=== PATIENT | male | born 1975 | race Caucasian/White ===

== ENCOUNTER → 2018-11-01 | Outpatient (CLI) | payer BC ==
[~2018-11-01] MED LIST: FLONASE NASAL S16 GM NS; MULTI VITAMINS1 TAB PO; NEXIUM 40MG40 MG PO; NORCO 325 MG-101 TAB PO; OMEGA-3 1000 MG1 CAP PO; PROPECIA1 MG PO; PROZAC 20MG20 MG PO
== END ==
LOC: COL.RAD 14:32
DX: K80.20 Calculus of gallbladder without cholecystitis without obstruction (principal); K82.8 Other specified diseases of gallbladder; R31.9 Hematuria, unspecified; R16.0 Hepatomegaly, not elsewhere classified; M43.06 Spondylolysis, lumbar region

== ENCOUNTER 2018-11-06 15:35 | Inpatient (IN) | payer BC ==
[~2018-11-06] VITALS: Ht 182.9 cm; Wt 102.2 kg
[2018-11-06] MEDS ORDERED: FLONASE NASAL S16 GM NS (15:56)
[2018-11-06] MEDS ORDERED: NORCO 325 MG-101 TAB PO (15:57)
[2018-11-06] MEDS ORDERED: NEXIUM 40MG40 MG PO (15:57)
[2018-11-06] MEDS ORDERED: PROZAC 20MG20 MG PO (15:57)
[2018-11-06] MEDS ORDERED: MULTI VITAMINS1 TAB PO (15:58)
[2018-11-06] MEDS ORDERED: PROPECIA1 MG PO (15:58)
[2018-11-06] MEDS ORDERED: OMEGA-3 1000 MG1 CAP PO (15:59)
[2018-11-06 16:17] VITALS: BP 123/76; PULSE 109; TEMP 98.1
[2018-11-06 18:01] LABS: HEMATOCRIT 44.8 % (42.0-52.0); HEMOGLOBIN 15.3 g/dl (13.5-18.0); MEAN CELL VOLUME 84 fl (80.0-100.0); MEAN CORPUSCULAR HEMOGLOBIN 29 pg (27.0-31.0); MEAN CORPUSCULAR HGB CONC 34 g/dl (33.0-37.0); MEAN PLATELET VOLUME 10.3 fl (7.4-10.4); PLATELET COUNT 343 K/mm3 (130-400); RED BLOOD COUNT 5.34 M/mm3 (4.20-5.60); REDCELL DISTRIBUTION WIDTH-CV 16.2 % (11.5-14.5)
[2018-11-06 18:09] LABS: ALBUMIN 3.2 gm/dL (3.5-5.0); BILIRUBIN,TOTAL 2.8 mg/dL (0.0-1.0); CALCIUM 8.1 mg/dL (8.4-10.2); CREATININE, serum 1.86 (0.66-1.25); POTASSIUM 4.8 mmol/L (3.4-5.0)
[2018-11-06 18:52] LABS: BAND 2 % (0-10); EOSINOPHIL 1 % (0-4); LYMPHOCYTE 13 % (20.0-51.0); NEUTROPHILS 81 % (42.0-75.2); PLATELET ESTIMATE NORMAL (NORMAL)
[2018-11-06 19:15] VITALS: BP 122/67; PULSE 116; TEMP 99.2
[2018-11-06 19:24] VITALS: BP 122/67; PULSE 116; TEMP 99.2
[2018-11-06 20:51] LABS: PH 6 (5-8); SQUAMOUS EPITHELIAL None Seen /hpf; URINE APPEARANCE Clear; URINE BACTERIA None Seen /hpf; URINE BILIRUBIN Negative (NEGATIVE); URINE BLOOD 3+ (NEGATIVE); URINE COLOR Amber; URINE GLUCOSE Negative (NEGATIVE); URINE KETONE Negative (NEGATIVE); URINE LEUKOCYTE ESTERASE Negative (NEGATIVE); URINE NITRATE Negative (NEGATIVE); URINE PROTEIN(semi-quant) 1+ (NEGATIVE); URINE RBC >50 /hpf; URINE UROBILINOGEN >=4.0 mg/dL (NEGATIVE)
[2018-11-06 20:55] LABS: COLLECTION METHOD CLEAN CATCH
--- NOTE | 2018-11-06 21:28 | NUR ---
PATIENT UP TO CHAIR. REPORTS NEED FOR PAIN MEDICATION. PAIN AT A 7/10 IN HIS R ABD AND UPPER CHEST/SHOULDER AREA. DESCRIBED SHARP PAIN. GIVEN PO NORCO. PATIENT ALERT AND ORIENTED. UP TO BATHROOM, HAD UNMEASURED VOID AND DID UA SAMPLE. SEE ASSESSMENT. NO FURTHER NEEDS AT THIS TIME.
[2018-11-07] VITALS (7 sets, daily range): BP systolic 120–139; BP diastolic 72–87; PULSE 102–114; TEMP 98.1–100.9
--- NOTE | 2018-11-07 02:37 | NUR ---
PATIENT C/O HOT SWEATS. FEVER OF 100.9 NOTED. CALLED TO [facility]. ORDERED 650 MG TYLENOL PO. REQUESTED ANOTHER SPRITE AND ICE CHIPS. WILL CONTIUE TO MONITOR.
[2018-11-07 06:45] LABS: HEMATOCRIT 41.4 % (42.0-52.0); HEMOGLOBIN 14.2 g/dl (13.5-18.0); MEAN CELL VOLUME 83 fl (80.0-100.0); MEAN CORPUSCULAR HEMOGLOBIN 29 pg (27.0-31.0); MEAN CORPUSCULAR HGB CONC 34 g/dl (33.0-37.0); PLATELET COUNT 354 K/mm3 (130-400); RED BLOOD COUNT 4.98 M/mm3 (4.20-5.60); REDCELL DISTRIBUTION WIDTH-CV 16.1 % (11.5-14.5)
[2018-11-07 06:59] LABS: ALBUMIN 3.1 gm/dL (3.5-5.0); BILIRUBIN,TOTAL 2.5 mg/dL (0.0-1.0); CREATININE, serum 1.59 (0.66-1.25); POTASSIUM 4.4 mmol/L (3.4-5.0); TOTAL PROTEIN 6.8 gm/dL (6.4-8.2)
[2018-11-07 07:19] LABS: ANISOCYTOSIS 1+; BAND 3 % (0-10); EOSINOPHIL 1 % (0-4); LYMPHOCYTE 17 % (20.0-51.0); NEUTROPHILS 78 % (42.0-75.2); PLATELET ESTIMATE NORMAL (NORMAL)
--- NOTE | 2018-11-07 08:50 | NUR ---
Patient in bed resting. Alert and oriented x 3. Shift assessment complete. Patient states pain to abdomen /10, given norco per orders. Iv fluids infusing per orders. Denies further needs at this time.
--- NOTE | 2018-11-07 09:50 | NUR ---
Dr. Sanders, Dr. Jennings and hospitalit team in to see patient.
--- NOTE | 2018-11-07 10:18 | NUR ---
SW attended clinical rounds to discuss discharge planning. Patient's mother was also present. Patient lives independently at home with his . Patient's PCP is Dr Stratton and he obtains prescriptions from [email or web address]. Patient denies difficulty obtaining or paying for medications. Patient is independent with all ADLs and does not require any DME or home health services. Patient does not have a DPOA-HC and is not interested in completeing one at this time. SW does not anticipate any discharge needs.
[2018-11-07 10:48] LABS: FERRITIN 271 ng/mL (18-464); IRON,SERUM 16 ug/dL (35-150); TOTAL IRON BINDING CAPACITY 258 ug/dL (261-462)
[2018-11-07 11:35] LABS: BILIRUBIN,DIRECT 1.2 mg/dL (0.0-0.4)
[2018-11-07 12:15] LABS: INR 1.2 (0.8-3.0); PROTHROMBIN TIME 14.5 SECONDS (9.7-12.8)
--- NOTE | 2018-11-07 13:17 | NUR ---
Contacted MRI for MRCP, unable to do today, as patient has been drinking fluids, plan for NPO at midnight MRCP to be done in AM
[2018-11-07 17:12] LABS: PH 7 (5-8); SQUAMOUS EPITHELIAL None Seen /hpf; URINE APPEARANCE Clear; URINE BACTERIA None Seen /hpf; URINE BILIRUBIN Negative (NEGATIVE); URINE BLOOD 3+ (NEGATIVE); URINE COLOR Yellow; URINE GLUCOSE Negative (NEGATIVE); URINE KETONE Negative (NEGATIVE); URINE LEUKOCYTE ESTERASE Negative (NEGATIVE); URINE NITRATE Negative (NEGATIVE); URINE PROTEIN(semi-quant) Negative (NEGATIVE); URINE RBC >50 /hpf; URINE UROBILINOGEN >=4.0 mg/dL (NEGATIVE)
[2018-11-07 17:20] LABS: COLLECTION METHOD CLEAN CATCH
[2018-11-07 17:33] LABS: HEMATOCRIT 41.4 % (42.0-52.0); HEMOGLOBIN 14.2 g/dl (13.5-18.0); MEAN CELL VOLUME 83 fl (80.0-100.0); MEAN CORPUSCULAR HEMOGLOBIN 28 pg (27.0-31.0); MEAN CORPUSCULAR HGB CONC 34 g/dl (33.0-37.0); MEAN PLATELET VOLUME 10.1 fl (7.4-10.4); PLATELET COUNT 357 K/mm3 (130-400); RED BLOOD COUNT 5.02 M/mm3 (4.20-5.60); REDCELL DISTRIBUTION WIDTH-CV 16.1 % (11.5-14.5)
[2018-11-07 18:05] LABS: ALBUMIN 3.1 gm/dL (3.5-5.0); BILIRUBIN,TOTAL 2.1 mg/dL (0.0-1.0); CALCIUM 8.1 mg/dL (8.4-10.2); CREATININE, serum 1.28 (0.66-1.25); POTASSIUM 4.5 mmol/L (3.4-5.0); TOTAL PROTEIN 6.8 gm/dL (6.4-8.2)
--- NOTE | 2018-11-07 18:27 | NUR ---
Patient has done well throughout the day, having kussmaul respirations this AM, better towards midday. Has requested pain medications throughout the day, given per orders. Showered this afternoon, linens changed. fluids and antibiotcs infusing to left forarm IV per orders. Patient is to be NPO at midnight for MRCP in the AM. Denies further needs at this time. will report off to cage shift manager.
[2018-11-07 18:33] LABS: BAND 1 % (0-10); EOSINOPHIL 2 % (0-4); LYMPHOCYTE 10 % (20.0-51.0); NEUTROPHILS 78 % (42.0-75.2)
[2018-11-07 18:34] LABS: PLATELET ESTIMATE NORMAL (NORMAL)
--- NOTE | 2018-11-07 23:37 | NUR ---
patient alert and oriented in bed. c/o increased pain. po norco given. appears flushed and states he is sweaty. afebrile. respirations are deep but normal rate. patient denies further needs at this time.
[2018-11-07 23:59] LABS: HEPATITIS B CORE AB,TOTAL Negative (()); HEPATITIS B SURFACE ANTIBODY <2.0 (())
[2018-11-08] VITALS (11 sets, daily range): BP systolic 132–152; BP diastolic 80–93; PULSE 91–109; TEMP 97.7–99.4
[2018-11-08 00:01] LABS: FOLLICLE STIMULATING HORMONE <0.1 mIU/mL (1.0-12.0); LUTENIZING HORMONE <0.1 mIU/mL (0.6-12.1)
--- NOTE | 2018-11-08 03:52 | NUR ---
PATIENT BLOOD CULTURE MRSA POSITIVE. CALLED TO [facility]. STARTED ON 2G VANCOMYCIN. WILL RUN WHEN ZOSYN IS COMPLETE. CONTACT ISOLATION INITIATED.
--- NOTE | 2018-11-08 06:11 | NUR ---
Vancomycin Initial Dosing Pharmacy Note Ordering provider: Doyle Cordoba DO Indication/duration: MRSA Bacteremia, 7 days Relevant comorbidities: possible acute cholecystitis w/ sepsis LABS: WBC 17.7, SCr 1.28, CrCl>80, GFR 62 MICRO: Bio[facility] blood culture +MRSA Recommendation: Vancomycin 1.5 gm (~15 mg/kg) IV q8h. Pharmacy will continue to monitor and check a Vancomycin trough on 11/09/18. Loading dose: 2 grams Maintenance dose: 1.5 grams every 8 hours Trough goal: 15-20 ug/mL
[2018-11-08 07:31] LABS: BASO # 0.1 (0.0-0.2); BASO % 0.7 % (0.0-2.0); EOS # 0.3 (0.0-0.7); EOS % 1.5 % (0-4.0); GRAN # 15.8 (1.4-6.5); GRAN % 77.3 % (42.2-75.2); HEMATOCRIT 42.6 % (42.0-52.0); HEMOGLOBIN 14.4 g/dl (13.5-18.0); LYMPH # 1.9 (1.2-3.4); LYMPH % 9.2 % (20.0-51.0); MEAN CELL VOLUME 84 fl (80.0-100.0); MEAN CORPUSCULAR HEMOGLOBIN 28 pg (27.0-31.0); MEAN CORPUSCULAR HGB CONC 34 g/dl (33.0-37.0); MEAN PLATELET VOLUME 10.4 fl (7.4-10.4); MONO # 1.3 (0.1-0.6); MONO % 6.5 % (1.7-9.3); PLATELET COUNT 397 K/mm3 (130-400); RED BLOOD COUNT 5.08 M/mm3 (4.20-5.60); REDCELL DISTRIBUTION WIDTH-CV 16.4 % (11.5-14.5)
[2018-11-08 07:39] LABS: ALBUMIN 3.2 gm/dL (3.5-5.0); BILIRUBIN,TOTAL 2.1 mg/dL (0.0-1.0); CALCIUM 8.3 mg/dL (8.4-10.2); CREATININE, serum 1.32 (0.66-1.25); POTASSIUM 4.4 mmol/L (3.4-5.0)
--- NOTE | 2018-11-08 08:00 | NUR ---
PATIENT IS DROWSY AND RESTING IN BED THIS MORNING. PATIENT IS A&OX4. TACHYPNIC, SHALLOW BREATHING NOTED. PATIENT DENIES A PRODUCTIVE COUGH, BUT STATES THAT HE FEELS SHORT OF BREATH WITH PAIN. TACHYCARDIA NOTED, VSS. PATIENT STATES THAT HE FEELS WEAK TODAY. BOWEL SOUNDS ACTIVE ALL FOUR QUADRANTS. PATIENT IS NPO FOR IMAGING. PATIENT DENIES COMPLAINTS OF N/V. POSITIVE PEDAL PULSES EQUAL BILATERALLY. IV FLUIDS INFUSING TO LEFT FOREARM IV VIA PUMP. PATIENT GIVEN PRN PO NORCO FOR PAIN RATED A 7/10 ON A 0-10 SCALE. CALL LIGHT WITHIN REACH. MOTHER PRESENT AT THE BEDSIDE. NO OTHER NEEDS AT THIS TIME.
--- NOTE | 2018-11-08 08:03 | NUR ---
DAVID DOSS CALLED AND NOTIFIED OF CRIICAL WBC RESULT OF 20.4. NO ORDERS GIVEN AT THIS TIME.
--- NOTE | 2018-11-08 09:44 | NUR ---
PATIENT TAKEN TO RADIOLOGY VIA WHEELCHAIR. WILL WAIT FOR PATIENT ARRIVAL BACK TO ROOM 347.
--- NOTE | 2018-11-08 10:16 | NUR ---
PATIENT ARRIVED BACK TO ROOM 347 VIA WHEELCHAIR FROM RADIOLOGY.
--- NOTE | 2018-11-08 12:28 | NUR ---
CONSENT FORM SIGNED FOR ATIF. IV FLUIDS TO GRAVITY FLOW TUBING. PATIENT TAKEN TO [facility] ROOM 16. WILL WAIT FOR PATIENT ARRIVAL BACK TO ROOM 347.
--- NOTE | 2018-11-08 12:53 | NUR ---
RADIOLOGY NOTIFIED OF ATIF ORDER.
--- NOTE | 2018-11-08 12:58 | NUR ---
DAVID CANCINO OF DR. MICHEL CALLED AND NOTIFIED OF CARDIOLOGY CONSULT AND ATIF.
--- NOTE | 2018-11-08 16:50 | NUR ---
INFECTIOUS DISEASE CONSULT CALLED TO DR. LONDON. NO ORDERS GIVEN AT THIS TIME.
--- NOTE | 2018-11-08 18:39 | NUR ---
REPORT GIVEN TO ANGELES BROWN.
--- NOTE | 2018-11-08 21:15 | NUR ---
Shift assessment complete. Patient in bed, awake. States, 05/31 in RUQ. Prn pain medication not due, pt agreeable to wait for the po medication. Patient ambulated to independently to shower. IV disconnected temporarily for shower. Will infuse abx when shower is complete, per pt request. Denies further needs at this time. Will continue to monitor.
--- NOTE | 2018-11-08 23:17 | NUR ---
Spoke to patient regarding code status. Explained what "DNR" means, and he stated he would like to be a FULL CODE. I will notify day shift to have the rounding speak to patient about code status. Patient agreeable to plan.
[2018-11-09 03:38] VITALS: BP 151/93; PULSE 95; TEMP 98.7
--- NOTE | 2018-11-09 04:17 | NUR ---
Patient in bed, resting. States, pain is 8/10 and norco has not been effective. Requested IV medication. Patient falling asleep in between sentences. Prn IV pain medication given, per order. Denies further needs at this time. Will continue to monitor.
[2018-11-09 06:41] LABS: HEMATOCRIT 41.1 % (42.0-52.0); HEMOGLOBIN 13.9 g/dl (13.5-18.0); MEAN CELL VOLUME 83 fl (80.0-100.0); MEAN CORPUSCULAR HEMOGLOBIN 28 pg (27.0-31.0); MEAN CORPUSCULAR HGB CONC 34 g/dl (33.0-37.0); MEAN PLATELET VOLUME 10.1 fl (7.4-10.4); PLATELET COUNT 428 K/mm3 (130-400); RED BLOOD COUNT 4.94 M/mm3 (4.20-5.60)
[2018-11-09 06:48] LABS: ALBUMIN 3.1 gm/dL (3.5-5.0); BILIRUBIN,TOTAL 1.7 mg/dL (0.0-1.0); CALCIUM 8.4 mg/dL (8.4-10.2); CREATININE, serum 1.1 (0.66-1.25); POTASSIUM 4.2 mmol/L (3.4-5.0)
[2018-11-09 07:16] LABS: EOSINOPHIL 3 % (0-4); LYMPHOCYTE 19 % (20.0-51.0); MYELOCYTE 1 % (0-0); NEUTROPHILS 65 % (42.0-75.2); PLATELET ESTIMATE INCREASED (NORMAL)
--- NOTE | 2018-11-09 08:00 | NUR ---
PATIENT IS DROWSY AND RESTING IN BED THIS MORNING. PATIENT AROUSES EASILY TO NAME. PATIENT IS A&OX4. SHALLOW BREATHING NOTED. PATIENT DENIES A PRODUCTIVE COUGH, BUT STATES THAT HE FEELS SHORT OF BREATH WITH PAIN. VSS. PATIENT STATES THAT HE FEELS WEAK TODAY. BOWEL SOUNDS ACTIVE ALL FOUR QUADRANTS. PATIENT TOLERATING DIET WITHOUT ANY COMPLAINTS OF N/V. POSITIVE PEDAL PULSES EQUAL BILATERALLY. IV FLUIDS INFUSING TO LEFT FOREARM IV VIA PUMP. CALL LIGHT WITHIN REACH. PATIENT DENIES ANY OTHER NEEDS AT THIS TIME.
[2018-11-09 09:25] VITALS: BP 148/95; PULSE 89; TEMP 98.8
--- NOTE | 2018-11-09 11:20 | NUR ---
PATIENT TAKEN TO MRI VIA WHEELCHAIR. WILL WAIT FOR PATIENT TO RETURN TO ROOM 347.
--- NOTE | 2018-11-09 12:16 | NUR ---
PATIENT ARRIVED BACK TO ROOM 347 VIA WHEELCHAIR FROM RADIOLOGY.
[2018-11-09 12:20] VITALS: BP 152/95; PULSE 101; TEMP 98.4
--- NOTE | 2018-11-09 12:27 | NUR ---
DAVID DOSS CALLED AND NOTIFIED THAT RADIOLOGY WAS ONLY ABLE TO OBTAIN PART OF THE MRI DUE TO THE PATIENT BECOMING HOT AND SWEATY.
--- NOTE | 2018-11-09 13:05 | NUR ---
PATIENT TAKEN DOWN FOR CT. WILL WAIT FOR RETURN TO 347.
--- NOTE | 2018-11-09 13:35 | NUR ---
PATIENT ARRIVED BACK TO ROOM [address]
[2018-11-09 17:40] VITALS: BP 139/89; PULSE 97; TEMP 97.4
--- NOTE | 2018-11-09 18:56 | NUR ---
REPORT GIVEN TO ANGELES BROWN.
[2018-11-09 19:14] VITALS: BP 137/87; PULSE 105; TEMP 98.4
--- NOTE | 2018-11-09 21:30 | NUR ---
Patient in bed, awake. States, pain 7/10 in RLQ and back. Prn pain medication given. IVF stopped temporarily for shower per pt request. Denies further needs at this time. Will continue to monitor.
[2018-11-10 00:14] VITALS: BP 131/96; PULSE 94; TEMP 98.7
--- NOTE | 2018-11-10 03:47 | NUR ---
Patient in bed, resting. He had gotten up to the bathroom and pain increased with movement. Prn pain medication given. Denies further needs at this time. Will continue to monitor.
[2018-11-10 04:24] VITALS: BP 151/96; PULSE 91; TEMP 97.9
[2018-11-10 06:59] LABS: HEMATOCRIT 43.7 % (42.0-52.0); HEMOGLOBIN 14.7 g/dl (13.5-18.0); MEAN CELL VOLUME 84 fl (80.0-100.0); MEAN CORPUSCULAR HEMOGLOBIN 28 pg (27.0-31.0); MEAN CORPUSCULAR HGB CONC 34 g/dl (33.0-37.0); MEAN PLATELET VOLUME 9.5 fl (7.4-10.4); PLATELET COUNT 473 K/mm3 (130-400); RED BLOOD COUNT 5.21 M/mm3 (4.20-5.60)
[2018-11-10 07:04] LABS: ALBUMIN 3.2 gm/dL (3.5-5.0); BILIRUBIN,TOTAL 1.5 mg/dL (0.0-1.0); CALCIUM 8.8 mg/dL (8.4-10.2); CREATININE, serum 1.09 (0.66-1.25); POTASSIUM 4.2 mmol/L (3.4-5.0); TOTAL PROTEIN 7.4 gm/dL (6.4-8.2)
[2018-11-10 07:48] VITALS: BP 144/95; PULSE 88; TEMP 97.6
--- NOTE | 2018-11-10 08:22 | NUR ---
Assessment complete. Patient A&Ox4. VSS. IV CDI, fluids infusing. Denies pain when not moving, but pain increases when patient moves and ambulates. Pain medication requested and administered by nurse. Contact precautions in place. Patients mother at the bedside. No further needs expressed from patient. Call light within reach
[2018-11-10 08:45] LABS: BAND 1 % (0-10); EOSINOPHIL 1 % (0-4); LYMPHOCYTE 8 % (20.0-51.0); METAMYELOCYTE 1 % (0-0); NEUTROPHILS 81 % (42.0-75.2); PLATELET ESTIMATE INCREASED (NORMAL)
[2018-11-10 11:48] VITALS: BP 147/92; PULSE 94
[2018-11-10 14:25] VITALS: BP 147/92; PULSE 94; TEMP 97.6
--- NOTE | 2018-11-10 15:28 | NUR ---
Patient transfered by EMS to [facility]. Discharge packet with patient. INT to Lf forearm, CDI. Nurse administered pain medication before transfer. No futher needs expressed from patient. Mother of patient has patient belongings. Report called to [facility]
== END 2018-11-10 15:00 | disposition short-term general hospital (02) | DRG 871 ==
LOC: SURG 15:35
PROVIDERS: Internal Medicine Gastroenterology; Nurse Practitioner Family; Physician Assistant
DX: A41.02 Sepsis due to Methicillin resistant Staphylococcus aureus (principal); G06.1 Intraspinal abscess and granuloma; J85.2 Abscess of lung without pneumonia; E87.1 Hypo-osmolality and hyponatremia; N17.9 Acute kidney failure, unspecified; N39.0 Urinary tract infection, site not specified; L03.818 Cellulitis of other sites; K80.01 Calculus of gallbladder with acute cholecystitis with obstruction; F41.9 Anxiety disorder, unspecified; F32.9 Major depressive disorder, single episode, unspecified; I10 Essential (primary) hypertension; K21.9 Gastro-esophageal reflux disease without esophagitis; F17.200 Nicotine dependence, unspecified, uncomplicated; E86.9 Volume depletion, unspecified; K59.00 Constipation, unspecified; K70.10 Alcoholic hepatitis without ascites; N62 Hypertrophy of breast; R65.20 Severe sepsis without septic shock; F10.20 Alcohol dependence, uncomplicated; E87.8 Other disorders of electrolyte and fluid balance, not elsewhere classified; R31.29 Other microscopic hematuria; Z98.890 Other specified postprocedural states
CPT/HCPCS: 99223-AI; 99233-AI; 99239; J1170; J1650; J2543; J2704; J3370; J3480; J7030; J7040; J7050; Q9967

== ENCOUNTER → 2018-12-29 | Outpatient (CLI) | payer BC ==
[~2018-12-29] MED LIST changes: +CUBICIN 500MG500 MG IV; +TEFLARO 60600 MG/VIA IV
== END ==
LOC: COL.RAD 09:22
DX: A41.02 Sepsis due to Methicillin resistant Staphylococcus aureus (principal); M46.20 Osteomyelitis of vertebra, site unspecified; R60.0 Localized edema
CPT/HCPCS: A9585

== ENCOUNTER 2019-01-15 16:30 | Outpatient (RCR) | payer BC ==
--- NOTE | 2018-11-27 15:15 | NUR ---
Here for cares. right upper chest small bore catheter present. non-tunnelled. with sterile technique central line dressing change done with insertion site cleansed with chloraprep x 1, chlorhexidine imgreganted disk applied, skin prep, stat lock, and tegaderm applied. no signs or symptoms of complications noted. no concerns voiced. lab drawn. port then flushed with 20ml normal saline with good blood return noted. cap change. orange end cap applied. sutures intact. advised to remove sutures at a later date. will return to next week for cares. voiced understanding of instructions.
[2018-11-27 15:21] VITALS: BP 143/97; PULSE 95; TEMP 98.5
[2018-11-27 15:51] LABS: BASO # 0.2 (0.0-0.2); BASO % 2.1 % (0.0-2.0); EOS # 0.5 (0.0-0.7); EOS % 6.2 % (0-4.0); GRAN # 4.2 (1.4-6.5); GRAN % 54.3 % (42.2-75.2); HEMATOCRIT 50.9 % (42.0-52.0); HEMOGLOBIN 16.9 g/dl (13.5-18.0); LYMPH # 2.3 (1.2-3.4); LYMPH % 29.1 % (20.0-51.0); MEAN CELL VOLUME 86 fl (80.0-100.0); MEAN CORPUSCULAR HEMOGLOBIN 29 pg (27.0-31.0); MEAN CORPUSCULAR HGB CONC 33 g/dl (33.0-37.0); MONO # 0.6 (0.1-0.6); MONO % 7.8 % (1.7-9.3); PLATELET COUNT 345 K/mm3 (130-400); RED BLOOD COUNT 5.94 M/mm3 (4.20-5.60)
[2018-11-27 16:03] LABS: ALBUMIN 3.9 gm/dL (3.5-5.0); BILIRUBIN,TOTAL 0.9 mg/dL (0.0-1.0); CALCIUM 9.2 mg/dL (8.4-10.2); POTASSIUM 4.4 mmol/L (3.4-5.0); TOTAL PROTEIN 7.6 gm/dL (6.4-8.2)
[2018-11-27 16:09] LABS: CREATININE, serum 1.49 (0.66-1.25)
[2018-12-04 17:00] VITALS: BP 138/93; PULSE 100; TEMP 98.6
[2018-12-04 17:20] LABS: BASO # 0.1 (0.0-0.2); BASO % 0.9 % (0.0-2.0); EOS # 0.5 (0.0-0.7); EOS % 4.9 % (0-4.0); GRAN # 6.5 (1.4-6.5); GRAN % 66.1 % (42.2-75.2); HEMATOCRIT 49.4 % (42.0-52.0); HEMOGLOBIN 16.4 g/dl (13.5-18.0); LYMPH # 2.1 (1.2-3.4); LYMPH % 20.7 % (20.0-51.0); MEAN CELL VOLUME 86 fl (80.0-100.0); MEAN CORPUSCULAR HEMOGLOBIN 29 pg (27.0-31.0); MEAN CORPUSCULAR HGB CONC 33 g/dl (33.0-37.0); MONO # 0.7 (0.1-0.6); MONO % 7.1 % (1.7-9.3); PLATELET COUNT 295 K/mm3 (130-400); RED BLOOD COUNT 5.74 M/mm3 (4.20-5.60); REDCELL DISTRIBUTION WIDTH-CV 16.1 % (11.5-14.5)
[2018-12-04 17:25] LABS: ALBUMIN 3.7 gm/dL (3.5-5.0); BILIRUBIN,TOTAL 0.8 mg/dL (0.0-1.0); CALCIUM 8.7 mg/dL (8.4-10.2); CREATININE, serum 1.25 (0.66-1.25); POTASSIUM 3.9 mmol/L (3.4-5.0); TOTAL PROTEIN 7.1 gm/dL (6.4-8.2)
[2018-12-07 08:00] VITALS: BP 141/97; PULSE 98; TEMP 97.6
[2018-12-11 16:45] VITALS: BP 134/92; PULSE 93; TEMP 98.4
[2018-12-11 17:00] LABS: BASO # 0.1 (0.0-0.2); BASO % 1.1 % (0.0-2.0); EOS # 0.5 (0.0-0.7); EOS % 5.2 % (0-4.0); GRAN # 6.5 (1.4-6.5); GRAN % 62.4 % (42.2-75.2); HEMATOCRIT 51.6 % (42.0-52.0); HEMOGLOBIN 17.2 g/dl (13.5-18.0); LYMPH # 2.4 (1.2-3.4); LYMPH % 22.8 % (20.0-51.0); MEAN CELL VOLUME 86 fl (80.0-100.0); MEAN CORPUSCULAR HEMOGLOBIN 29 pg (27.0-31.0); MEAN CORPUSCULAR HGB CONC 33 g/dl (33.0-37.0); MEAN PLATELET VOLUME 9.9 fl (7.4-10.4); MONO # 0.8 (0.1-0.6); MONO % 7.9 % (1.7-9.3); PLATELET COUNT 259 K/mm3 (130-400); RED BLOOD COUNT 6.02 M/mm3 (4.20-5.60); REDCELL DISTRIBUTION WIDTH-CV 17.1 % (11.5-14.5)
[2018-12-11 17:10] LABS: BILIRUBIN,TOTAL 0.8 mg/dL (0.0-1.0); CALCIUM 8.9 mg/dL (8.4-10.2); CREATININE, serum 1.35 (0.66-1.25); POTASSIUM 4.3 mmol/L (3.4-5.0); TOTAL PROTEIN 7.3 gm/dL (6.4-8.2)
[2018-12-18 16:43] VITALS: BP 136/88; PULSE 99; TEMP 97.7
[2018-12-18 17:15] LABS: BASO # 0.1 (0.0-0.2); BASO % 1.3 % (0.0-2.0); EOS # 0.8 (0.0-0.7); EOS % 9.7 % (0-4.0); GRAN # 5.3 (1.4-6.5); GRAN % 63.2 % (42.2-75.2); HEMOGLOBIN 17.2 g/dl (13.5-18.0); LYMPH # 1.6 (1.2-3.4); LYMPH % 18.7 % (20.0-51.0); MEAN CELL VOLUME 87 fl (80.0-100.0); MEAN CORPUSCULAR HEMOGLOBIN 28 pg (27.0-31.0); MEAN CORPUSCULAR HGB CONC 33 g/dl (33.0-37.0); MEAN PLATELET VOLUME 9.7 fl (7.4-10.4); MONO # 0.6 (0.1-0.6); MONO % 6.7 % (1.7-9.3); PLATELET COUNT 261 K/mm3 (130-400); RED BLOOD COUNT 6.07 M/mm3 (4.20-5.60); REDCELL DISTRIBUTION WIDTH-CV 16.1 % (11.5-14.5)
[2018-12-18 17:21] LABS: ALBUMIN 4.1 gm/dL (3.5-5.0); BILIRUBIN,TOTAL 0.7 mg/dL (0.0-1.0); CREATININE, serum 1.12 (0.66-1.25); POTASSIUM 4.2 mmol/L (3.4-5.0); TOTAL PROTEIN 7.4 gm/dL (6.4-8.2)
[2018-12-18 17:30] LABS: HEMATOCRIT 52.6 % (42.0-52.0)
[2018-12-25 15:59] LABS: BASO # 0.1 (0.0-0.2); BASO % 0.5 % (0.0-2.0); EOS # 0.2 (0.0-0.7); EOS % 1.5 % (0-4.0); GRAN # 8.7 (1.4-6.5); GRAN % 78.7 % (42.2-75.2); LYMPH # 1.5 (1.2-3.4); LYMPH % 13.4 % (20.0-51.0); MEAN CELL VOLUME 87 fl (80.0-100.0); MEAN CORPUSCULAR HGB CONC 32 g/dl (33.0-37.0); MEAN PLATELET VOLUME 9.8 fl (7.4-10.4); MONO # 0.6 (0.1-0.6); MONO % 5.4 % (1.7-9.3); PLATELET COUNT 310 K/mm3 (130-400); RED BLOOD COUNT 6.53 M/mm3 (4.20-5.60); REDCELL DISTRIBUTION WIDTH-CV 16.4 % (11.5-14.5)
[2018-12-25 16:02] LABS: HEMATOCRIT 56.5 % (42.0-52.0); HEMOGLOBIN 18.3 g/dl (13.5-18.0); MEAN CORPUSCULAR HEMOGLOBIN 28 pg (27.0-31.0)
[2018-12-25 16:13] LABS: ALBUMIN 4.1 gm/dL (3.5-5.0); BILIRUBIN,TOTAL 0.7 mg/dL (0.0-1.0); CALCIUM 9.3 mg/dL (8.4-10.2); CREATININE, serum 1.31 (0.66-1.25); POTASSIUM 4.3 mmol/L (3.4-5.0); TOTAL PROTEIN 7.6 gm/dL (6.4-8.2)
[2018-12-25 16:14] VITALS: BP 144/90; PULSE 92; TEMP 98.5
[2019-01-01 16:45] VITALS: BP 153/96; PULSE 86; TEMP 98.6
[2019-01-01 17:13] LABS: BASO # 0.1 (0.0-0.2); BASO % 1.1 % (0.0-2.0); EOS # 0.6 (0.0-0.7); EOS % 7.3 % (0-4.0); GRAN # 4.7 (1.4-6.5); GRAN % 59.9 % (42.2-75.2); LYMPH # 1.8 (1.2-3.4); LYMPH % 23.1 % (20.0-51.0); MEAN CELL VOLUME 86 fl (80.0-100.0); MEAN CORPUSCULAR HGB CONC 33 g/dl (33.0-37.0); MEAN PLATELET VOLUME 10.1 fl (7.4-10.4); MONO # 0.7 (0.1-0.6); MONO % 8.2 % (1.7-9.3); PLATELET COUNT 288 K/mm3 (130-400); REDCELL DISTRIBUTION WIDTH-CV 15.6 % (11.5-14.5)
[2019-01-01 17:14] LABS: HEMOGLOBIN 18.2 g/dl (13.5-18.0); MEAN CORPUSCULAR HEMOGLOBIN 28 pg (27.0-31.0)
[2019-01-01 17:31] LABS: ALBUMIN 3.9 gm/dL (3.5-5.0); BILIRUBIN,TOTAL 0.7 mg/dL (0.0-1.0); CALCIUM 9.2 mg/dL (8.4-10.2); CREATININE, serum 1.37 (0.66-1.25); POTASSIUM 4.3 mmol/L (3.4-5.0); TOTAL PROTEIN 7.3 gm/dL (6.4-8.2)
[2019-01-08 17:10] VITALS: BP 151/92; PULSE 84; TEMP 98.3
[2019-01-08 17:51] LABS: BASO # 0.1 (0.0-0.2); BASO % 0.9 % (0.0-2.0); EOS # 0.6 (0.0-0.7); EOS % 8.4 % (0-4.0); GRAN # 3.7 (1.4-6.5); GRAN % 53.2 % (42.2-75.2); HEMOGLOBIN 17.7 g/dl (13.5-18.0); LYMPH # 1.8 (1.2-3.4); LYMPH % 25.3 % (20.0-51.0); MEAN CELL VOLUME 86 fl (80.0-100.0); MEAN CORPUSCULAR HEMOGLOBIN 28 pg (27.0-31.0); MEAN CORPUSCULAR HGB CONC 33 g/dl (33.0-37.0); MEAN PLATELET VOLUME 10.1 fl (7.4-10.4); MONO # 0.8 (0.1-0.6); MONO % 11.9 % (1.7-9.3); PLATELET COUNT 267 K/mm3 (130-400); RED BLOOD COUNT 6.29 M/mm3 (4.20-5.60)
[2019-01-08 17:52] LABS: HEMATOCRIT 54.2 % (42.0-52.0)
[2019-01-08 18:03] LABS: ALBUMIN 3.9 gm/dL (3.5-5.0); BILIRUBIN,TOTAL 0.5 mg/dL (0.0-1.0); CALCIUM 9.3 mg/dL (8.4-10.2); CREATININE, serum 1.35 (0.66-1.25); POTASSIUM 4.1 mmol/L (3.4-5.0); TOTAL PROTEIN 7.2 gm/dL (6.4-8.2)
[~2019-01-15] VITALS: Ht 182.9 cm; Wt 102.0 kg
[2019-01-15 16:50] VITALS: BP 142/101; PULSE 87; TEMP 98.3
[2019-01-15 16:59] LABS: BASO # 0.1 (0.0-0.2); BASO % 0.9 % (0.0-2.0); EOS # 0.3 (0.0-0.7); EOS % 5.4 % (0-4.0); GRAN # 2.9 (1.4-6.5); GRAN % 50.9 % (42.2-75.2); LYMPH # 1.5 (1.2-3.4); LYMPH % 25.7 % (20.0-51.0); MEAN CELL VOLUME 84 fl (80.0-100.0); MEAN CORPUSCULAR HEMOGLOBIN 28 pg (27.0-31.0); MEAN CORPUSCULAR HGB CONC 33 g/dl (33.0-37.0); MEAN PLATELET VOLUME 9.9 fl (7.4-10.4); MONO % 16.7 % (1.7-9.3); PLATELET COUNT 253 K/mm3 (130-400); RED BLOOD COUNT 6.52 M/mm3 (4.20-5.60); REDCELL DISTRIBUTION WIDTH-CV 14.5 % (11.5-14.5)
[2019-01-15 17:05] LABS: HEMATOCRIT 54.8 % (42.0-52.0)
[2019-01-15 17:07] LABS: ALBUMIN 4.1 gm/dL (3.5-5.0); BILIRUBIN,TOTAL 0.5 mg/dL (0.0-1.0); CALCIUM 8.8 mg/dL (8.4-10.2); CREATININE, serum 1.35 (0.66-1.25); POTASSIUM 4.3 mmol/L (3.4-5.0); TOTAL PROTEIN 7.5 gm/dL (6.4-8.2)
== END 2019-01-22 08:48 | disposition home or self-care (01) ==
LOC: EUO 16:30
PROVIDERS: Family Medicine
DX: A41.02 Sepsis due to Methicillin resistant Staphylococcus aureus (principal); M46.20 Osteomyelitis of vertebra, site unspecified

== ENCOUNTER → 2021-07-16 | Outpatient (CLI) | payer BC | LOC: COL.RAD 12:30 | DX: M47.814 Spondylosis without myelopathy or radiculopathy, thoracic region (principal); M46.20 Osteomyelitis of vertebra, site unspecified ==